=== PATIENT | male | born 1955 | race Caucasian/White ===

== ENCOUNTER → 2017-12-26 | Outpatient (CLI) | payer OTHER | LOC: CIMAGING 10:27 | PROVIDERS: ATTEND Family Medicine | DX: R93.1 Abnormal findings on diagnostic imaging of heart and coronary circulation (principal); N28.89 Other specified disorders of kidney and ureter | CPT/HCPCS: 76770-PO ==

== ENCOUNTER → 2018-01-02 | Outpatient (CLI) | payer OTHER ==
[~2018-01-02] MED LIST: IOPAMIDOL (ISOVUE-300) 100 ML BTL ONE
== END ==
LOC: CIMAGING 08:23
PROVIDERS: ATTEND Family Medicine
DX: R19.03 Right lower quadrant abdominal swelling, mass and lump (principal); K80.20 Calculus of gallbladder without cholecystitis without obstruction
CPT/HCPCS: 74170-PO; Q9967

== ENCOUNTER → 2018-02-02 | Outpatient (CLI) | payer OTHER | LOC: CIMAGING 12:17 | PROVIDERS: ATTEND Urology | DX: N28.89 Other specified disorders of kidney and ureter (principal) | CPT/HCPCS: 71046-PO ==